=== PATIENT | male | born 1965 | race Two or more races ===

== ENCOUNTER 2021-08-22 07:24 | Outpatient (CLI) | payer OTHER ==
[2021-09-19] MEDS ORDERED: HYDROCHLOROTHIA25 MG PO (08:30)
[2021-09-19] MEDS ORDERED: ALTACE10 MG PO (08:30)
== END 2021-08-22 07:40 | disposition home or self-care (01) ==
LOC: NUCLEAR 07:24
DX: K81.1 Chronic cholecystitis (principal)

== ENCOUNTER 2021-08-29 09:33 | Outpatient (CLI) | payer OTHER | END 2021-08-29 09:47 | disposition home or self-care (01) | LOC: TOM 09:33 | PROVIDERS: ATTEND Specialist | DX: R10.9 Unspecified abdominal pain (principal) ==

== ENCOUNTER 2021-09-26 05:00 | Day surgery (SDC) | payer OTHER ==
[~2021-09-26 05:00] MED LIST: ALTACE10 MG PO; HYDROCHLOROTHIA25 MG PO
== END 2021-09-26 14:35 | disposition home or self-care (01) ==
LOC: CIR.AMB 05:00
PROVIDERS: ATTEND Specialist
DX: K40.90 Unilateral inguinal hernia, without obstruction or gangrene, not specified as recurrent (principal); Z88.8 Allergy status to other drugs, medicaments and biological substances; I10 Essential (primary) hypertension; J45.909 Unspecified asthma, uncomplicated; E66.9 Obesity, unspecified

== ENCOUNTER 2021-10-17 07:49 | Outpatient (CLI) | payer OTHER | END 2021-10-17 07:50 | disposition home or self-care (01) | LOC: SONOGRAMA 07:49 | PROVIDERS: ATTEND Specialist | DX: N50.812 Left testicular pain (principal) ==

== ENCOUNTER 2022-03-30 16:48 | Emergency (ER) | payer OTHER ==
[~2022-03-30] VITALS: Ht 170.2 cm; Wt 99.8 kg
== END 2022-03-31 01:31 | disposition home or self-care (01) ==
LOC: ER 16:48
DX: K57.30 Diverticulosis of large intestine without perforation or abscess without bleeding (principal); I10 Essential (primary) hypertension; Z88.8 Allergy status to other drugs, medicaments and biological substances; K76.0 Fatty (change of) liver, not elsewhere classified

== ENCOUNTER → 2023-06-24 08:51 | Outpatient (CLI) | payer OTHER ==
[2023-06-24 10:01] LABS: HEMATOCRIT 49.8 % (39.0-48.0); HEMOGLOBIN 17.1 g/dL (13-16.00); MEAN CELL VOLUME 90.5 fL (80.0-100.00); MEAN CORPUSCULAR HGB CONC 34.3 g/dl (32.0-36.0); PLATELET COUNT 256 K/uL (150-450); RED CELL DISTRIBUTION WIDTH 13.5 % (11.5-14.5)
[2023-06-24 10:14] LABS: URINE APPEARANCE Clear; URINE BILIRRUBIN Negative (NEGATIVE); URINE BLOOD Negative; URINE COLOR Dark Yellow; URINE GLUCOSE Negative (NEGATIVE); URINE LEUKOCYTE Trace; URINE NITRATE Negative; URINE PROTEIN Negative (NEGATIVE)
[2023-06-24 10:18] LABS: URINE EPITHELIAL CELLS 1.5 uL (0.0-38.8); URINE RBC 11.7 uL (0.0-20.8); URINE WBC 2.1 uL (0.0-23.2)
[2023-06-24 10:33] LABS: URINE BACTERIA 3.7 uL (0.0-1933)
[2023-06-24 10:48] LABS: ALBUMIN 4.1 gm/dL (3.4-5.0); BILIRUBIN TOTAL 1.11 mg/dL (0.3-1.2); CALCIUM 9.2 mg/dL (8.5-10.1); CHOL HDL RATIO 3.4 (0-5.0); CREATININE SERUM 0.76 mg/dL (0.70-1.30); GFR 105.34; GLOBULINA 3.1 G/DL (2.4-3.5); POTASSIUM 3.92 mEq/L (3.5-5.1); TOTAL PROTEIN 7.2 gm/dL (6.4-8.2); TSH 1.6 uIU/mL (0.358-3.74)
== END | disposition home or self-care (01) ==
LOC: LAB 08:51
DX: R00.2 Palpitations (principal); I11.9 Hypertensive heart disease without heart failure; E78.2 Mixed hyperlipidemia; E11.9 Type 2 diabetes mellitus without complications